=== PATIENT | male | born 1965 | race Caucasian/White ===

== ENCOUNTER 2017-09-09 16:12 | Emergency (ER) | payer OTHER ==
[~2017-09-09] VITALS: Ht 180.3 cm; Wt 86.5 kg
[~2017-09-09 16:12] MED LIST: CEFU250T; HYDR-3237; VALA10004
[2017-09-09] MEDS ORDERED: HYDROmorphone 2 MG/ML, 1ML ONE (16:54)
[2017-09-09] MEDS ORDERED: ONDANSETRON 2MG/ML, 2ML IVPush ONE ×2 (17:00→18:30)
[2017-09-09] MEDS ORDERED: ONDANSETRON 2MG/ML, 2ML ONE ×2 (17:00→18:12)
[2017-09-09] MEDS ORDERED: SODIUM CHLORIDE FLUSH 10ML SYR IVF ONE (17:00)
[2017-09-09] MEDS ORDERED: HYDROmorphone 1 MG/ML, 1ML IVPush PRN (17:00)
[2017-09-09 17:17] LABS: HEMATOCRIT 45.7 % (39.2-51.8); HEMOGLOBIN 15.4 g/dL (13.7-18.0); WHITE BLOOD COUNT 12.1 x10^3/uL (3.4-10)
[2017-09-09 17:27] LABS: ASPARTATE AMINO TRANSFERASE 19 U/L (15-37); BLOOD UREA NITROGEN 15 mg/dL (7-18)
[2017-09-09] MEDS ORDERED: OMNIPAQUE 350 MG/ML, 100ML BOTTLE ONE (17:50)
[2017-09-09] MEDS ORDERED: PROMETHAZINE 25 MG/ML, 1ML ONE (19:18)
[2017-09-09] MEDS ORDERED: PROMETHAZINE 25 MG/ML, 1ML IM ONE (19:30)
[2017-09-09 20:04] VITALS: BP 119/60
== END 2017-09-09 20:00 | disposition home or self-care (01) ==
LOC: ED 18:26
DX: S02.32XA Fracture of orbital floor, left side, initial encounter for closed fracture (principal); S02.40FA Zygomatic fracture, left side, initial encounter for closed fracture; S02.40DA Maxillary fracture, left side, initial encounter for closed fracture; S40.011A Contusion of right shoulder, initial encounter; S09.90XA Unspecified injury of head, initial encounter; W20.8XXA Other cause of strike by thrown, projected or falling object, initial encounter; Y93.01 Activity, walking, marching and hiking; Y92.89 Other specified places as the place of occurrence of the external cause; Y99.8 Other external cause status
CPT/HCPCS: 36415; 70450; 70486; 71260; 72125; 74177; 80053; 83690; 85025; 85610; 85730; 96372; 96374; 96375; 99285; J1170; J2405; J2550; Q9967